=== PATIENT | female | born 1990 | race Caucasian/White ===

== ENCOUNTER 2020-09-03 18:18 | Emergency (ER) | payer OTHER ==
--- NOTE | 2020-09-03 18:30 | ERPHSYRPT ---
- History of Present Illness Time Seen by Provider: 09/03/20 18:30 Source: patient Exam Limitations: no limitations Physician History: This is a 29-year-old white female who presents with initial right lateral abdominal and inferior costal skin burning pain that began Monday a week ago. This past Monday she began having rash and pain in the same area. She was seen by a medical clinic and was given gabapentin but no a Cyclovir despite a diagnosis of shingles. In the last 2 days she also noticed that she has had significant pain in her right ear. She is wondering if the 2 are related. She has had no fevers. She has no chest pain. She has no shortness of breath. She has no abdominal pain. Timing/Duration: abrupt onset, days (6) Severity: mild ENT Location: ear (R) Prearrival Treatment: no prearrival treatment Associated Symptoms: ear pain (R) Allergies/Adverse Reactions: No Known Drug Allergies Allergy (Verified 09/03/20 18:44) Home Medications: Gabapentin 600 mg PO TID 09/03/20 [History] Hx Influenza Vaccination/Date Given: No Travel Risk - International Travel Have you traveled outside of the country in past 3 weeks: No - Coronavirus Screening Are you exhibiting any of the following symptoms?: No Close contact with a COVID-19 positive Pt in past 14-21 Days: No - Review of Systems Constitutional: No Symptoms Eyes: No Symptoms Ears, Nose, & Throat: Ear Pain (Right) Respiratory: No Symptoms Cardiac: No Symptoms Abdominal/Gastrointestinal: No Symptoms Genitourinary Symptoms: No Symptoms Musculoskeletal: No Symptoms Skin: Rash (Right lateral abdominal wall and inferior costal wall skin blistering and sharp pain) Neurological: No Symptoms Psychological: No Symptoms Endocrine: No Symptoms Hematologic/Lymphatic: No Symptoms Immunological/Allergic: No Symptoms All Other Systems: Reviewed and Negative - Past Medical History Pertinent Past Medical History: No Neurological History: No Pertinent History ENT History: No Pertinent History Cardiac History: No Pertinent History Respiratory History: No Pertinent History Endocrine Medical History: No Pertinent History Musculoskeletal History: No Pertinent History GI Medical History: No Pertinent History History: No Pertinent History Psycho-Social History: No Pertinent History Female Reproductive Disorders: No Pertinent History - Past Surgical History Past Surgical History: Yes Neuro Surgical History: No Pertinent History Cardiac: No Pertinent History Respiratory: No Pertinent History Gastrointestinal: No Pertinent History Genitourinary: No Pertinent History Musculoskeletal: No Pertinent History Female Surgical History: Section, Other Other Surgical History: cervical surgery - Social History Smoking Status: Former smoker Exposure to second hand smoke: No Drug Use: none Patient Lives Alone: Yes - Nursing Vital Signs Nursing Vital Signs: Initial Vital Signs Temperature 97.7 F 09/03/20 18:39 Pulse Rate 82 09/03/20 18:39 Respiratory Rate 22 09/03/20 18:39 Blood Pressure 154/81 09/03/20 18:39 O2 Sat by Pulse Oximetry 97 09/03/20 18:39 Pain Scale Pain Intensity 10 - Physical Exam General Appearance: mild distress, alert, anxiety Eye Exam: bilateral eye: normal inspection, PERRL, EOMI Ear Exam: bilateral ear: auricle normal, canal normal, TM normal Nasal Exam: normal inspection Throat Exam: normal, pharynx normal, moist mucus membranes Neck Exam: normal inspection, non-tender, supple, full range of motion, trachea midline Abdominal Exam: non-tender Neurologic Exam: alert, oriented x 3, cooperative, memory care director II-XII nml as tested, normal mood/affect, nml cerebellar function, nml station & gait, sensation nml Skin Exam: rash (Painful rash in a dermatomal distribution right lateral abdominal wall up to right inferior breast lateral ribs), other (No cellulitis) O2 Delivery: Room Air - Course Nursing assessment & vital signs reviewed: Yes Ordered Tests: Medication Summary Discontinued Medications Generic Name Dose Route Start Last Admin Trade Name Freq PRN Reason Stop Dose Admin Acyclovir 800 mg 09/03/20 20:05 Zovirax 200 Mg PO 09/03/20 20:06 STAT ONE Oxycodone/Acetaminophen 1 tab 09/03/20 20:04 Percocet Tablet 5/325mg PO 09/03/20 20:05 STAT STA Oxycodone/Acetaminophen 2 tab 09/03/20 20:04 Oxycodone-Acetaminophen 10-325 PO 09/03/20 20:05 SENT HOME W/ PATIENT STA - Progress Progress: unchanged Counseled pt/family regarding: diagnosis, need for follow-up - Departure Departure Disposition: Home Clinical Impression: Shingles, Right ear pain Condition: Stable Critical Care Time: No Referrals: HEBER SANTO [Primary Care Provider] - Additional Instructions: Follow-up with primary care physician for further management. Take your medication as prescribed. Prescriptions: Oxycodone HCl/Acetaminophen [Percocet 5-325 mg Tablet] 1 each PO Q8H PRN PRN #6 tablet MDD 3 PRN Reason: Pain Acyclovir 800 mg [Zovirax 800 mg] 800 mg PO 5XD #56 tablet
[2020-09-03 18:44] VITALS: BP 154/81; PULSE 82; O2SAT 97
[2020-09-03] MEDS ORDERED: OXYCODONE-ACETAMINOPHEN 10-325 PO STA (20:04)
[2020-09-03] MEDS ORDERED: PERCOCET TABLET 5/325MG PO STA (20:04)
[2020-09-03] MEDS ORDERED: ZOVIRAX 200 MG PO ONE (20:05)
[2020-09-03] MEDS ORDERED: PERCOCET TABLET 5/325MG ONE (20:11)
[2020-09-03] MEDS ORDERED: ZOVIRAX 200 MG ONE (20:11)
[2020-09-03] MEDS ORDERED: OXYCODONE-ACETAMINOPHEN 10-325 ONE (20:12)
== END 2020-09-03 20:44 | disposition home or self-care (01) ==
LOC: ED 18:18
DX: B02.9 Zoster without complications (principal); H92.01 Otalgia, right ear
CPT/HCPCS: 99283; A9270-GY